=== PATIENT | female | born 1995 | race Caucasian/White ===

== ENCOUNTER 2017-10-27 21:39 | Emergency (ER) | payer OTHER ==
[2017-10-27 22:35] LABS: KETONE, URINE AUTO RFX NEGATIVE (NEGATIVE); NITRITE, URINE AUTO RFX NEGATIVE (NEGATIVE); RBC, URINE AUTO RFX 132 /HPF (0-3); SPECIFIC GRAVITY UR AUTO RFX 1.011 (1.002-1.035); SQUAM EPITHELIAL CELL UR AURFX 0 /HPF (0-6)
[2017-10-27 22:39] LABS: LEUKOCYTE ESTERASE UR AUTO RFX 3+ (NEGATIVE); WBC, URINE AUTO RFX TNTC /HPF (0-3)
[2017-10-27] MEDS: CIPROFLOXACIN 500 MG TAB PO (23:22)
[2017-10-27] MEDS: PHENAZOPYRIDINE 100 MG TAB PO (23:22)
== END 2017-10-27 23:30 | disposition home or self-care (01) ==
LOC: M ED 21:39
DX: N30.00 Acute cystitis without hematuria (principal)
CPT/HCPCS: 81001